=== PATIENT | male | born 1995 | race Caucasian/White ===

== ENCOUNTER 2018-12-03 14:01 | Outpatient (CLI) | payer OTHER ==
--- NOTE | 2018-12-03 15:34 | MRI ---
MRI OF THE RIGHT KNEE: 12/03/18 PROVIDED CLINICAL HISTORY: Right knee pain. FINDINGS: The anterior cruciate ligament, posterior cruciate ligament, medial collateral ligament and lateral c ollateral ligamentous complex demonstrate an intact MR appearance, as does the extensor mechanism. The medial and lateral menisci demonstrate no evidence for tear. No focal articular cartilage defect is apparent. The amount of fluid within the knee joint appears physiologic. No focal concerning regional marrow o r muscular signal abnormality apparent. IMPRESSION: No evidence for internal derangement. POS: OFF
== END 2018-12-03 14:02 | disposition home or self-care (01) ==
LOC: BICMRI 14:01
PROVIDERS: ATTEND Family Medicine
DX: S89.91XD Unspecified injury of right lower leg, subsequent encounter (principal)